=== PATIENT | male | born 1960 | race Caucasian/White ===

== ENCOUNTER 2019-06-12 05:57 | Inpatient (IN) | payer BC ==
--- NOTE | 2019-06-09 14:11 | HP ---
SUPERVISING PHYSICIAN: Madan Britton MD. CHIEF COMPLAINT: Lower back surgery. HISTORY OF PRESENT ILLNESS: Mr. Betancur is a 58-year-old male with lower back pain radiating to his right leg. He had a number of injections. He has had therapy. He has been to medications and has modified his activities for years. It is getting worse rather than better. SURGICAL HISTORY: Appendectomy, wrist surgery, hospitalizations, DVT. FAMILY HISTORY: Father is alive. Mother , diagnosed with heart disease. SOCIAL HISTORY: Nonsmoker and drinks alcohol occasionally. Sexually active. MEDICATIONS: Pregabalin. ALLERGIES: NO KNOWN DRUG ALLERGIES. REVIEW OF SYSTEMS: CONSTITUTIONAL: Denies fever or chills. ENT: Denies vision or hearing. CARDIAC: Denies chest pain, shortness of breath, diaphoresis. PULMONARY: Denies shortness of breath, cough, hemoptysis. GI: Denies abdominal pain, nausea, vomiting, diarrhea, change in stool formation or consistency. : Denies trouble with urination, frequency of urination, blood in urine. SKIN: Denies skin rash, bruising, bleeding, skin masses. MUSCULOSKELETAL: As per the history of present illness. NEUROLOGIC: As per the history of present illness. PSYCHOLOGICAL: Denies anxiety, depression. PHYSICAL EXAMINATION: CONSTITUTION: Well-appearing, well-nourished, alert. VITAL SIGNS: Weight 200, height 72 inches. NEUROLOGICAL: Alert and oriented x3. Speech is spontaneous and fluent. Normal fund of knowledge. Cranial nerves grossly intact. Lower extremities 5/5 bilateral strength hip flexors, knee flexion, knee extension, dorsiflexion, plantar flexion, EHL. Positive for radiculopathy. Negative SLR bilateral. Hip rotations, normal bilateral. Tender to palpate lumbar spine. Deep tendon reflexes 2+ patellar bilaterally, 2+ ankle bilaterally. Negative Babinski. No clonus. Sensory, slight decreased sensation top of right toe. Gait and station, sit to stand is normal, normal gait, normal heel and toe walk. IMAGING: Lumbar MRI, spondylolisthesis at L5-S1 with bilateral L5 nerve root compression. X-ray L5-S1 shows degenerative disk at L5-S1 with anterolisthesis measuring up to 9 mm with flexion. ASSESSMENT: 1. Spondylolisthesis, lumbar region. 2. Lumbar radiculopathy. 3. Lumbar back pain. PLAN: Decompression and laminectomy with fusion at L5-S1. INFORMED CONSENT: We discussed the indications, risks, benefits, alternatives, and expected results from surgery. The risks discussed included, but were not limited to, bleeding, infection, CSF leak, nerve damage, screw misplacement, cauda equina injury, paralysis, incontinence, wheelchair dependency, major blood vessel injury, cardiopulmonary complications of anesthesia, hypertension complications including blindness, spinal cord dysfunction, and . Long-term risks include need for future surgery and instrumentation failure. He understands the risks and is willing to proceed with surgery. Job ID: [id number] [facility]
[2019-06-11 11:08] VITALS: BMI 26.4
[2019-06-12] MEDS ORDERED: Bupivacaine PF 0.5% 30 ML VIAL ONE (06:14)
[2019-06-12] MEDS ORDERED: Thrombin 5000 UNITS/5 ML VIAL ONE (06:15)
[2019-06-12 06:23] LABS: Hemoglobin 16.9 g/dL (14.0-18.0); Mean Corpuscular HGB CONC 34.4 g/dL (32.0-36.0); Mean Corpuscular Hemoglobin 33.9 pg (27.0-31.0); Mean Corpuscular Volume 98.5 fL (78.0-98.0); Mean Platelet Volume 7.5 fL (7.4-10.4); Platelet Count 197 thou/uL (130-400); RBC Distribution Width 11.2 % (11.5-14.5); Red Blood Cell (RBC) Count 4.99 mill/uL (4.70-6.10); White Blood Cell (WBC) Count 5.4 thou/uL (4.8-10.8)
[2019-06-12] MEDS ORDERED: Midazolam HCl 2 mg/2 ml Vial ONE (06:28)
[2019-06-12] MEDS ORDERED: Fentanyl 250 MCG/5 ML VIAL ONE (06:28)
[2019-06-12 06:29] LABS: INR-International Normal Ratio 0.9; Prothrombin Time 11.9 SEC (12.0-14.7)
[2019-06-12 06:42] LABS: Anion Gap 12 mmol/L (10-20); BUN (Urea Nitrogen) 13 mg/dL (8.4-25.7); Calc. Creatinine Clearance 94 mL/min (70-130); Calcium 9.1 mg/dL (7.8-10.44); Carbon Dioxide 24 mmol/L (22-29); Chloride 107 mmol/L (98-107); Estimated GFR-MDRD 68; Glucose 86 mg/dL (70-105); Potassium 4.1 mmol/L (3.5-5.1); Sodium 139 mmol/L (136-145)
[2019-06-12] MEDS ORDERED: Metoclopramide HCl 10 MG/2 ML VIAL ONE (10:31)
[2019-06-12] MEDS ORDERED: EPHEDRINE 25 MG/5 ML SYRINGE ONE (10:31)
[2019-06-12] MEDS ORDERED: Ondansetron PF 4 MG/2 ML Vial ONE (10:31)
[2019-06-12] MEDS ORDERED: Lidocaine 1% PF 5 ML VIAL ONE (10:31)
[2019-06-12] MEDS ORDERED: Rocuronium Bromide 10 MG/ML (10ML VIAL) ONE (10:31)
[2019-06-12] MEDS ORDERED: Dexamethasone 20 MG/5 ML VIAL ONE (10:31)
[2019-06-12] MEDS ORDERED: PROPOFOL 200 MG/20 ML VIAL ONE (10:31)
[2019-06-12] MEDS ORDERED: Glycopyrrolate 0.2 MG/ML 5 ML SYRINGE ONE (10:31)
[2019-06-12] MEDS ORDERED: tiZANidine HCl 4 MG TAB PO PRN (11:19)
[2019-06-12] MEDS ORDERED: HYDROcodone/Acetaminophen 10/325 mg Tablet PO PRN (11:19)
[2019-06-12] MEDS ORDERED: Acetaminophen 325 MG TAB PO PRN (11:19)
[2019-06-12] MEDS ORDERED: Morphine 2 MG/ML SYRINGE SLOW IVP PRN (11:19)
[2019-06-12] MEDS ORDERED: diphenhydrAMINE 50 MG/ML VIAL IVP PRN (11:19)
[2019-06-12] MEDS ORDERED: Acetaminophen 650 MG Suppository PR PRN (11:19)
[2019-06-12] MEDS ORDERED: Ondansetron PF 4 MG/2 ML Vial IVP PRN (11:19)
[2019-06-12] MEDS ORDERED: Promethazine 25 MG TAB PO PRN (11:19)
[2019-06-12] MEDS ORDERED: traMADol HCl 50 MG TAB PO PRN ×2 (11:19)
[2019-06-12] MEDS ORDERED: Acetaminophen/Codeine 30-300mg Tablet PO PRN ×2 (11:19)
[2019-06-12] MEDS ORDERED: Bisacodyl 10 MG SUPP PR PRN (11:19)
[2019-06-12] MEDS ORDERED: Mag-Al 1200 mg/1200 mg/30 ML UDCUP PO PRN (11:19)
[2019-06-12] MEDS ORDERED: Milk Of Magnesia 30 ML UDCUP PO PRN (11:19)
[2019-06-12] MEDS ORDERED: Promethazine HCl 25 MG/ML VIAL IM PRN ×2 (11:19→11:32)
[2019-06-12] MEDS ORDERED: Promethazine HCl 12.5 MG SUPP PR PRN (11:19)
[2019-06-12] MEDS ORDERED: Morphine 4 MG/ML VIAL SLOW IVP PRN (11:19)
[2019-06-12] MEDS ORDERED: diphenhydrAMINE 25 MG CAP PO PRN (11:19)
[2019-06-12] MEDS ORDERED: Meperidine HCl/PF 25 MG/ML VIAL SLOW IVP PRN (11:32)
[2019-06-12] MEDS ORDERED: Promethazine HCl 25 MG/ML VIAL SLOW IVP PRN (11:32)
[2019-06-12] MEDS ORDERED: Ondansetron HCl/PF 4 MG/2 ML Vial IVP PRN (11:32)
[2019-06-12] MEDS ORDERED: Fentanyl 100 MCG/2 ML VIAL ONE (12:04)
[2019-06-12] MEDS ORDERED: Tamsulosin HCl 0.4 MG CAP ONE (12:04)
[2019-06-12] MEDS: Scopolamine 1.5 mg/72 hour Patch TD SCH ×2 (13:00→19:30)
[2019-06-12] MEDS: Sodium Chloride 0.9% 1,000 ML IV SCH (14:55)
[2019-06-12] MEDS: CEFAZOLIN 2 GM in Premix Bag 1 BAG IVPB SCH ×2 (15:00→23:48)
[2019-06-12] MEDS: HYDROcodone/Acetaminophen 10/325 mg Tablet PO PRN ×3 (15:40→23:53)
--- NOTE | 2019-06-12 17:45 | OP ---
DATE OF PROCEDURE: 06/12/2019 FINANCIAL SALES ASSISTANT: Ronny Oswald PA-C PREOPERATIVE INDICATION: Treat pain and prevent neurological deterioration. PREOPERATIVE DIAGNOSES: Bilateral L5 pars defect, L5-S1 spondylolisthesis, right L5 greater than left L5 radiculopathies from foraminal stenosis. POSTOPERATIVE DIAGNOSES: Bilateral L5 pars defect, L5-S1 spondylolisthesis, right L5 greater than left L5 radiculopathies from foraminal stenosis. PROCEDURES PERFORMED: Decompressive laminectomy, medial facetectomy, and foraminotomy L5-S1, and a transforaminal lumbar interbody arthrodesis at L5-S1 with placement of intervertebral biomechanical device at L5-S1, and pedicle screw and nasra instrumentation at L5-S1, posterolateral arthrodesis L5-S1, local morselized autograft, and morselized allograft. PREOPERATIVE MEDICATION: Ancef 2 g IV. DRAIN NUMBER: Zero. DRAIN TYPE: None. DESCRIPTION OF PROCEDURE: The patient was brought to the operating room. General endotracheal anesthesia was induced. The patient was carefully positioned on the Elvis frame with the appropriate padding for the chest and hips. A lateral fluoro radiograph was used to plan our incision. The lumbar skin was sterilely prepped and draped. We opened with a 10 blade knife in the midline and controlled bleeding with bipolar cautery. We used monopolar cautery to dissect through subcutaneous tissues to the thoracodorsal fascia. We incised the fascia in the midline and reflected the paraspinal muscles off the spinous process and lamina of L4, L5, and S1. A self-retaining retractor was placed. A lateral fluoro radiograph confirmed the levels upon which we were operating. We then carried our dissection over the facet joints at L4-L5 and L5-S1 to identify the transverse processes of L5 on both sides as well as the sacral ala. With our exposure secured, we placed a self-retaining retractor. We used an Adson rongeur to remove the spinous process and lamina of L5. This lamina was grossly unstable and not connected to the L5 pedicles. Complete facetectomies were done at both sides. We removed the yellow ligament, and we decompressed all neural elements in the lateral recesses. The L5 nerve roots were severely impinged in both of the foramina. The right was somewhat more severe than the left, but both of them had compression. This required extensive foraminotomy to decompress the nerve roots. We worked our way all the way past the pedicles at L5 bilaterally and ensured that a Perez ball probe could pass out the foramen above, below, and ventral to the nerve roots before we turned our attention to arthrodesis. We completed our facetectomy by removal of the superior portion of the facet joint off the sacrum on the right side. With this through the bony defect, we had excellent angle into the intervertebral space. We incised the disk and removed disk contents using curettes and rongeurs. A rectangular-shaped bone rasp measured the height of the interspace to 9 mm. We prepared the endplates for grafting with curettes. A 9 mm PEEK graft was brought into the field. This graft was loaded with demineralized bone matrix and morselized autograft. The autograft was prepared on the back table from our laminectomy bone, which was cleaned of all soft tissue attachments, morcellized and added into the demineralized bone matrix to form our fusion substrate. We advanced the PEEK graft with a fusion substrate inside into the interspace under radiographic guidance to the appropriate depth. We turned our attention to pedicle screw instrumentation. Using bony anatomic landmarks, palpation of the medial portion of the pedicles and a lateral fluoro radiograph as our guide, we chose entry points for the L5 and S1 pedicle screws. We drilled out our entry points and then used a bone awl to create trajectories through the pedicles into the vertebral bodies. We used a tap to widen the trajectories and then the ball probe confirmed they were completely encased in bone. 6.5 mm diameter screws were placed in the pedicles of L5 and S1 bilaterally. A 360-degree image set was generated with our isocentric C-arm confirming adequate positioning of our pedicle screw instrumentation. We then irrigated copiously with bacitracin irrigation. We decorticated the transverse processes of L5 bilaterally as well as the sacral ala. Over the decorticated bone in the posterolateral recess, we left demineralized bone matrix and morselized autograft as our posterolateral fusion substrate. We irrigated the center of the wound once again. We brought rods into the screw heads and tightened caps over the rods using a torque/counter-torque mechanism, we ensured adequate tightness. We probed above, below, and ventral to the L5 nerve roots once again to ensure that they were not compressed in their final resting place. We placed vancomycin powder in the wound, and we closed the wound in anatomical layers. We applied a sterile dressing. This was a clean case, no contamination. Job ID: [id number]
[2019-06-12] MEDS ORDERED: Scopolamine 1.5 mg/72 hour Patch TD SCH (20:00)
[2019-06-13] MEDS: Sodium Chloride 0.9% 1,000 ML IV SCH (01:43)
[2019-06-13] MEDS ORDERED: Tamsulosin HCl 0.4 MG CAP PO SCH (06:00)
[2019-06-13 07:28] VITALS: BP 114/66; TEMP 98
--- NOTE | 2019-06-13 12:05 | PRG ---
DATE OF SERVICE: 06/13/2019 Mr. Betancur is postoperative day #1 from lumbar fusion. He is doing very well. He is already mobilizing with improvement in his leg pain with trace paresthesias in his right lower extremity. His strength is full. His wound is healing well. He is also voiding on his own. We will plan for dismissal. We went over do's and don'ts in the postoperative period. Job ID: [id number]
--- NOTE | 2019-06-15 10:32 | DIS ---
DATE OF ADMISSION: 06/12/2019 DATE OF DISCHARGE: 06/13/2019 REASON FOR ADMISSION: Lumbar fusion. ADMISSION HISTORY: Mr. Betancur is a 58-year-old male with lower back pain radiating to his right leg. It is getting worse rather than better despite numerous injections and physical therapy. HOSPITAL COURSE: Mr. Betancur underwent decompression and laminectomy with fusion at L5-S1. He is doing very well and is out of bed, mobilizing. He has minimal leg pain with small amounts of paresthesia in his right lower extremity. His strength is good. His incision is healing well. He is voiding on his own. We will plan to discharge him later today. CONDITION ON DISCHARGE: The patient has no emergencies. Condition was stable for discharge. MEDICATIONS: Home-going medications, reviewed. FOLLOWUP: Followup arrangements made by our scheduling coordinators in clinic and call to the patient. ACTIVITY RESTRICTIONS: These were reviewed in person. Wound care. Showers are acceptable. The patient should pat the incision dry, but not submerge it under the surface of any body of water for more than 2 months. Job ID: [id number] [facility]
== END 2019-06-13 11:35 | disposition home or self-care (01) | DRG 455 ==
LOC: SURG A 05:57 → SJJU 12:52
PROVIDERS: ADMIT Neurological Surgery; ATTEND Neurological Surgery
PROC: 0SG30AJ Fusion of Lumbosacral Joint with Interbody Fusion Device, Posterior Approach, Anterior Column, Open Approach (ICD-10-PCS; principal; 2019-06-12)
PROC: 0SG3071 Fusion of Lumbosacral Joint with Autologous Tissue Substitute, Posterior Approach, Posterior Column, Open Approach (ICD-10-PCS; 2019-06-12)
PROC: 0SB40ZZ Excision of Lumbosacral Disc, Open Approach (ICD-10-PCS; 2019-06-12)
PROC: 01NB0ZZ Release Lumbar Nerve, Open Approach (ICD-10-PCS; 2019-06-12)
DX: M43.17 Spondylolisthesis, lumbosacral region (principal); M51.17 Intervertebral disc disorders with radiculopathy, lumbosacral region; M48.07 Spinal stenosis, lumbosacral region; Z86.718 Personal history of other venous thrombosis and embolism; Z90.49 Acquired absence of other specified parts of digestive tract
CPT/HCPCS: 36415; 80048; 85027; 85610; 85730; C1713; C1768; J0690; J1100; J2001; J2250; J2405; J2704; J2765; J3010; J3370; J3490; S0020